=== PATIENT | male | born 1930 | race Caucasian/White ===

== ENCOUNTER 2016-09-21 23:20 | Emergency (ER) | payer MEDICARE, OTHER ==
[~2016-09-21 23:20] MED LIST: ACET500CAP PO; AFRIN15 NAS; ARICEPT10 PO; ASAB PO; BETA240 PO; BETAPACE160 MG PO; CARD120 PO; CUBICIN500 MG IV; CYANO1000T PO; DSS PO; FERROUS SULF325 M1 PO; FIBER THERAPY PO; FINASTERIDE; FLEX PO; FLOMAX4 PO; FLORASTOR250 MG PO; HEMATINIC PL PO; JANTOVEN6 MG PO; KDUR10 PO; KLOR-CON 1010 MEQ PO; L20 PO; LIPITOR40 PO; LOP25 PO; METHOC500B PO; METOPROLOL PO; METPAKSF PO; MEXILETINE250 MG PO; MEXITIL 150 MG150 MG PO; MEXITIL 200 MG200 MG PO; MIRALAXPKT PO; MULTIPLE VIT PO; MULTIVITAMI1 PO; NIACOR500 MG PO; NITROSTAT0.4 MG SL; NORCO1 TA1 PO; PERCOCET1 TA4 PO; PLAVIX PO; PRILOSEC40 MG PO; PROSCAR5 PO; REST15 PO; SENTAB PO; STOOL SOFTEN100 MG PO; STOOL SOFTENER PO; SYN.05 PO; T PO; TOPXL50 PO; TUMSROLL PO; ULTRAM50 PO; VICODINTAB PO; VITAMIN C250 MG PO; ZOCOR40 PO; [UNRECOGNIZED DRUG - CODE] PO; [UNRECOGNIZED DRUG - OTHER] OR
[2016-09-21 23:42] LABS: BASOPHILS 0.3 %; BASOPHILS ABSOLUTE 0.03 10/3/uL (0.0-0.16); EOSINOPHILS 0.9 %; EOSINOPHILS ABSOLUTE 0.08 10/3/uL (0.0-0.53); HEMATOCRIT 38.2 % (40.0-51.0); HEMOGLOBIN 12.6 g/dL (13.6-17.8); IMMATURE GRANULOCYTES 0.4 %; IMMATURE GRANULOCYTES ABSOLUTE 0.04 10/3/uL (0.0-0.11); LYMPHOCYTES 16.4 %; LYMPHOCYTES ABSOLUTE 1.51 10/3/uL (0.67-4.30); MEAN CORPUSCULAR HEMOGLOB 31.3 pg (26.0-34.0); MEAN CORPUSCULAR VOLUME 94.8 fL (80-100); MEAN PLATELET VOLUME 10.3 fL (9.2-13.0); MONOCYTES 7.5 %; MONOCYTES ABSOLUTE 0.69 10/3/uL (0.21-1.20); NEUTROPHILS 74.5 %; NEUTROPHILS ABSOLUTE 6.85 10/3/uL (2.02-8.40); PLATELET COUNT 198 10/3/uL (150-400); RBC DISTRIBUTION WIDTH 14.2 % (12.0-16.0); RED CELL COUNT 4.03 10/6/uL (4.7-6.1); WHITE BLOOD CELLS 9.2 10/3/uL (4.5-10.5)
[2016-09-21 23:46] LABS: ER CBC TAT 0 Hrs 04 MinsNP; MANUAL DIFF NO %
[2016-09-21 23:50] LABS: INTERNATIONAL NORMAL RATI 1.2 UNITS (-); PARTIAL THROMBO TIME 26.5 SEC (22.5-37.2); PROTIME (NOT ORD) 14.7 SEC (12.0-14.5)
[2016-09-21 23:58] LABS: A/G RATIO 1.2 (0.7-1.9); ALBUMIN 3.6 G/DL (3.5-5.0); CALCIUM, SERUM 9.2 MG/DL (8.5-10.4); CHLORIDE, SERUM 107 MMOL/L (96-112); CO2 (CARBON DIOXIDE) 24 MMOL/L (24-34); GFR AFRICAN AMERICAN 70 ML/MIN (>=60); GFR NON AFRICAN AMERICAN 60 ML/MIN (>=60); GLUCOSE, SERUM 93 MG/DL (60-99); POTASSIUM, SERUM 4.8 MMOL/L (3.5-5.3); SGOT(AST) 14 U/L (5-40); SGPT(ALT) 19 U/L (5-65); SODIUM, SERUM 139 MMOL/L (135-148); TOTAL BILIRUBIN 0.4 MG/DL (0-1.2); TOTAL PROTEIN 6.6 G/DL (6.0-8.5)
[2016-09-21 23:59] LABS: ALKALINE PHOSPHATASE 74 U/L (45-117); BUN (BLOOD UREA NITROGEN) 31 MG/DL (6-23)
[2016-09-22 00:04] LABS: LACTATE 0.9 MMOL/L (0.3-2.4)
[2016-09-22 00:41] LABS: PROCALCITONIN <0.05 ng/mL (<0.5)
[2016-09-22 00:46] LABS: ASCORBIC ACID (UR NOT ORDER) NEG (NEG); BILIRUBIN, URINE NEGATIVE (NEG); ER URINALYSIS TAT 0 Hrs 00 Mins; KETONE, URINE NEGATIVE (NEG); LEUKOCYTE ESTERASE(NOT OR NEG (NEG); NITRITE (URINE) NEG (NEG); WBC (NOT ORDERED) (RFLEX) < 1 (0-5)
[2017-01-25] MEDS ORDERED: EXELON9.5T TOP (14:06)
== END 2016-09-22 01:58 | disposition short-term general hospital (02) ==
LOC: ER 23:20
PROVIDERS: Emergency Medicine
DX: I62.03 Nontraumatic chronic subdural hemorrhage (principal); I50.9 Heart failure, unspecified; I10 Essential (primary) hypertension; Z98.61 Coronary angioplasty status; Z88.8 Allergy status to other drugs, medicaments and biological substances; Z91.041 Radiographic dye allergy status; Z79.82 Long term (current) use of aspirin; Z79.899 Other long term (current) drug therapy
CPT/HCPCS: 70450; 71010; 80053; 81001; 83605; 84145; 85025; 85610; 85730; 87040; 93005; 99285